=== PATIENT | male | born 1955 | race Caucasian/White ===

== ENCOUNTER → 2021-06-29 | Emergency (ER) | payer BC, OTHER ==
[~2021-06-29] VITALS: Ht 175.3 cm; Wt 79.5 kg
[~2021-06-29] MED LIST: AMIO200T62 PO; AMLO5TAB4 PO; APIX5TAB3 PO; ASPI-100 PO; ATEN50TA41 PO; LORazepam 2 mg/ml vial IV ONE; TADA5TAB2 PO; diltiazem 5mg/ml 5ml inj. IV ONE; normal saline 1000ml 1,000 ML IV ONE; propofol 10mg/ml 20ml vial IV ONE
[2021-06-29 11:01] LABS: BASOPHILS # (AUTO) 0.1 X10'3 (0-0.2); BASOPHILS % (AUTO) 0.7 % (0-1); EOSINOPHILS # (AUTO) 0.2 X10'3 (0-0.9); EOSINOPHILS % (AUTO) 2.1 % (0-6); HEMATOCRIT 49.2 % (42.0-52.0); HEMOGLOBIN 17.3 g/dl (14.0-17.9); LYMPHOCYTES # (AUTO) 2.5 X10'3 (1.1-4.8); LYMPHOCYTES % (AUTO) 32.3 % (21-51); MEAN CORPUSCULAR HEMOGLOBIN 30.6 PG (27.0-31.0); MEAN CORPUSCULAR HGB CONC 35.2 g/dL (33.0-36.5); MEAN CORPUSCULAR VOLUME 86.7 FL (78-98); MEAN PLATELET VOLUME 8.8 FL (7.4-10.4); MONOCYTES # (AUTO) 0.7 X10'3 (0-0.9); MONOCYTES % (AUTO) 9.2 % (2-12); NEUTROPHILS # (AUTO) 4.3 X10'3 (1.8-7.7); NEUTROPHILS % (AUTO) 55.7 % (42-75); PLATELET COUNT 250 X10'3 (140-440); RED BLOOD COUNT 5.67 X10'6 (4.70-6.10); RED CELL DISTRIBUTION WIDTH 14.2 % (11.5-14.5); WHITE BLOOD COUNT 7.7 X10'3 (4.5-11.0)
[2021-06-29 11:22] LABS: ALANINE AMINOTRANSFERASE 50 U/L (12-78); ALBUMIN 4.2 G/DL (3.4-5.0); ALKALINE PHOSPHATASE 49 IU/L (46-116); ANION GAP 10 (8-16); ASPARTATE AMINO TRANSFERASE 28 U/L (10-37); BILIRUBIN,TOTAL 0.5 MG/DL (0.1-1.0); BLOOD UREA NITROGEN 19 MG/DL (7-18); BUN/CREATININE RATIO 22.4 (5.4-32.0); CALCIUM 9.1 MG/DL (8.5-10.1); CHLORIDE 104 MMOL/L (99-107); CREATININE 0.85 MG/DL (0.60-1.10); GLUCOSE 122 MG/DL (70-104); POTASSIUM 4.3 MMOL/L (3.5-5.1); SODIUM 137 MMOL/L (135-145); TOTAL CARBON DIOXIDE 22.6 MMOL/L (24-32); TOTAL PROTEIN 8.3 G/DL (6.4-8.2); eGFR > 90 ML/MIN
[2021-06-29 11:34] LABS: MAGNESIUM 2.1 MG/DL (1.5-2.4)
[2021-06-29 13:56] VITALS: BP 118/78
== END | disposition home or self-care (01) ==
LOC: ER 10:13
DX: I48.91 Unspecified atrial fibrillation (principal)
CPT/HCPCS: 36415; 71045; 80053; 83735; 83880; 84484; 85025; 85610; 92960; 93005; 96361; 96374; 96375; 99285; J2060; J2704; J3490; J7030

== ENCOUNTER 2021-07-08 14:17 | Emergency (ER) | payer BC ==
[~2021-07-08] VITALS: Ht 175.3 cm; Wt 79.0 kg
[2021-07-08 15:21] LABS: BASOPHILS % (AUTO) 0.6 % (0-1); EOSINOPHILS # (AUTO) 0.2 X10'3 (0-0.9); EOSINOPHILS % (AUTO) 2.3 % (0-6); LYMPHOCYTES # (AUTO) 1.4 X10'3 (1.1-4.8); LYMPHOCYTES % (AUTO) 20.8 % (21-51); MEAN CORPUSCULAR HEMOGLOBIN 30.1 PG (27.0-31.0); MEAN CORPUSCULAR HGB CONC 34.1 g/dL (33.0-36.5); MEAN CORPUSCULAR VOLUME 88.2 FL (78-98); MEAN PLATELET VOLUME 8.9 FL (7.4-10.4); MONOCYTES # (AUTO) 0.5 X10'3 (0-0.9); MONOCYTES % (AUTO) 8.1 % (2-12); NEUTROPHILS # (AUTO) 4.4 X10'3 (1.8-7.7); NEUTROPHILS % (AUTO) 68.2 % (42-75); PLATELET COUNT 227 X10'3 (140-440); RED BLOOD COUNT 4.99 X10'6 (4.70-6.10); RED CELL DISTRIBUTION WIDTH 14.2 % (11.5-14.5); WHITE BLOOD COUNT 6.5 X10'3 (4.5-11.0)
[2021-07-08 15:48] LABS: APTT 27 SECONDS (22-32)
[2021-07-08 15:53] LABS: ALANINE AMINOTRANSFERASE 47 U/L (12-78); ALBUMIN 3.8 G/DL (3.4-5.0); ALBUMIN/GLOBULIN RATIO 1.2 (1.1-1.5); ALKALINE PHOSPHATASE 45 IU/L (46-116); ANION GAP 10 (8-16); ASPARTATE AMINO TRANSFERASE 27 U/L (10-37); BILIRUBIN,TOTAL 0.3 MG/DL (0.1-1.0); BLOOD UREA NITROGEN 18 MG/DL (7-18); BUN/CREATININE RATIO 20.9 (5.4-32.0); CALCIUM 8.9 MG/DL (8.5-10.1); CHLORIDE 105 MMOL/L (99-107); CREATININE 0.86 MG/DL (0.60-1.10); GLUCOSE 138 MG/DL (70-104); POTASSIUM 3.8 MMOL/L (3.5-5.1); SODIUM 140 MMOL/L (135-145); TOTAL CARBON DIOXIDE 25.2 MMOL/L (24-32); TOTAL PROTEIN 7.1 G/DL (6.4-8.2); eGFR 90 ML/MIN
[2021-07-08 17:26] VITALS: BP 141/67
== END 2021-07-08 17:28 | disposition home or self-care (01) ==
LOC: ER 14:18
DX: I10 Essential (primary) hypertension (principal); I48.0 Paroxysmal atrial fibrillation; R20.0 Anesthesia of skin; F41.9 Anxiety disorder, unspecified; R53.1 Weakness; I48.91 Unspecified atrial fibrillation
CPT/HCPCS: 36415; 70450; 71045; 80053; 85025; 85610; 85730; 93005; 99285

== ENCOUNTER 2021-07-12 05:07 | Inpatient (IN) | payer BC ==
[2021-07-12] VITALS (7 sets, daily range): BP systolic 101–141; BP diastolic 50–84
[~2021-07-12] VITALS: Ht 175.3 cm; Wt 81.2 kg
[2021-07-12] MEDS ORDERED: aspirin 81mg tab.chew PO ONE ×2 (05:15→05:35)
[2021-07-12] MEDS ORDERED: magnesium 2GM in 50ml NS 50 ML IV ONE (05:35)
[2021-07-12] MEDS ORDERED: enoxaparin 100mg/ml syringe SUBCUT ONE (05:35)
[2021-07-12] MEDS ORDERED: normal saline 1000ML IV soln IVB ONE (05:35)
[2021-07-12 05:49] LABS: BASOPHILS # (AUTO) 0.1 X10'3 (0-0.2); BASOPHILS % (AUTO) 0.8 % (0-1); EOSINOPHILS # (AUTO) 0.4 X10'3 (0-0.9); EOSINOPHILS % (AUTO) 3.3 % (0-6); HEMATOCRIT 50.5 % (42.0-52.0); HEMOGLOBIN 17.3 g/dl (14.0-17.9); LYMPHOCYTES # (AUTO) 3.6 X10'3 (1.1-4.8); LYMPHOCYTES % (AUTO) 32.6 % (21-51); MEAN CORPUSCULAR HEMOGLOBIN 30.3 PG (27.0-31.0); MEAN CORPUSCULAR HGB CONC 34.2 g/dL (33.0-36.5); MEAN CORPUSCULAR VOLUME 88.7 FL (78-98); MEAN PLATELET VOLUME 8.7 FL (7.4-10.4); MONOCYTES # (AUTO) 1.1 X10'3 (0-0.9); MONOCYTES % (AUTO) 10.3 % (2-12); NEUTROPHILS # (AUTO) 5.8 X10'3 (1.8-7.7); PLATELET COUNT 286 X10'3 (140-440); RED BLOOD COUNT 5.69 X10'6 (4.70-6.10); RED CELL DISTRIBUTION WIDTH 14.2 % (11.5-14.5); WHITE BLOOD COUNT 10.9 X10'3 (4.5-11.0)
[2021-07-12 06:01] LABS: ALANINE AMINOTRANSFERASE 51 U/L (12-78); ALBUMIN 4.4 G/DL (3.4-5.0); ALBUMIN/GLOBULIN RATIO 1.1 (1.1-1.5); ALKALINE PHOSPHATASE 60 IU/L (46-116); ANION GAP 12 (8-16); ASPARTATE AMINO TRANSFERASE 23 U/L (10-37); BILIRUBIN,TOTAL 0.2 MG/DL (0.1-1.0); BLOOD UREA NITROGEN 20 MG/DL (7-18); BUN/CREATININE RATIO 21.1 (5.4-32.0); CALCIUM 9.2 MG/DL (8.5-10.1); CHLORIDE 105 MMOL/L (99-107); CREATININE 0.95 MG/DL (0.60-1.10); GLUCOSE 131 MG/DL (70-104); POTASSIUM 4.1 MMOL/L (3.5-5.1); SODIUM 142 MMOL/L (135-145); TOTAL PROTEIN 8.4 G/DL (6.4-8.2); eGFR 80 ML/MIN
[2021-07-12 06:09] LABS: MAGNESIUM 1.9 MG/DL (1.5-2.4)
[2021-07-12] MEDS: diltiazem-NS 100mg/100ml 100 ML IV SCH (06:58)
[2021-07-12] MEDS ORDERED: magnesium hydroxide 30ml (MOM) UD suspension PO PRN (07:25)
[2021-07-12] MEDS ORDERED: ondansetron/PF 4mg/2ml inj IV PRN (07:25)
[2021-07-12] MEDS ORDERED: magnesium 4gm in 100ml NS 100 ML IV PRN (07:25)
[2021-07-12] MEDS ORDERED: potassium Cl 20 mEq SR tablet PO PRN ×2 (07:25)
[2021-07-12] MEDS ORDERED: acetaminophen 325mg tablet PO PRN (07:25)
[2021-07-12] MEDS ORDERED: magnesium 2GM in 50ml NS 50 ML IV PRN (07:25)
[2021-07-12] MEDS ORDERED: potassium CL 10mEq/100ml bag 100 ML IV PRN (07:25)
[2021-07-12] MEDS ORDERED: mag hydrox/Alum hydrox/simeth 30ml oral suspension PO PRN (07:25)
[2021-07-12] MEDS: K and/or MAG REPLACEMENT MC SCH ×2 (08:00→19:46)
[2021-07-12] MEDS ORDERED: iohexol 350MG/ML 100ml bottle IV ONE (08:06)
--- NOTE | 2021-07-12 08:17 | NUR ---
dr. valentin at bedside.
[2021-07-12] MEDS: docusate sod 100mg capsule PO SCH ×2 (10:04→19:47)
[2021-07-12] MEDS: normal saline 1000ml 1,000 ML IV SCH ×2 (10:08→17:25)
[2021-07-12 10:36] LABS: POTASSIUM 4.4 MMOL/L (3.5-5.1)
[2021-07-12 10:42] LABS: MAGNESIUM 9.3 MG/DL (1.5-2.4)
--- NOTE | 2021-07-12 10:49 | NUR ---
Dr. Donovan made aware via [employer] that patient has a mag-9.3 called in at 1040. New order received and noted to repeat magnesium level.
[2021-07-12 11:27] LABS: MAGNESIUM 2.3 MG/DL (1.5-2.4)
--- NOTE | 2021-07-12 12:02 | NUR ---
Page Sent promotional table spacer PAGER ID: [phone] MESSAGE: [id number] Stephon. Repeat Mag is 2.3. Kaya/Janie [id number]
[2021-07-12] MEDS ORDERED: AMLO5TAB4 PO (14:16)
[2021-07-12] MEDS ORDERED: TADA5TAB2 PO (14:16)
[2021-07-12] MEDS ORDERED: ATEN50TA41 PO (14:16)
[2021-07-12] MEDS ORDERED: ASPI-100 PO (14:16)
--- NOTE | 2021-07-12 18:52 | NUR ---
Problems reprioritized. Patient report given, questions answered & plan of care reviewed with Beth.
[2021-07-12] MEDS: apixaban 5mg tablet PO SCH (19:47)
[2021-07-12] MEDS ORDERED: Melatonin 3mg tablet PO PRN (21:45)
--- NOTE | 2021-07-13 00:36 | NUR ---
Cardizem stopped, patient HR in the 60's. Shortly after patient converted to sinus zaina. Will continue to monitor.
[2021-07-13 02:00] VITALS: BP 116/59
[2021-07-13] MEDS: diltiazem-NS 100mg/100ml 100 ML IV SCH (02:45)
[2021-07-13] MEDS: normal saline 1000ml 1,000 ML IV SCH (03:25)
[2021-07-13 06:00] VITALS: BP 101/55
[2021-07-13 06:03] LABS: BASOPHILS % (AUTO) 0.6 % (0-1); EOSINOPHILS # (AUTO) 0.2 X10'3 (0-0.9); EOSINOPHILS % (AUTO) 2.7 % (0-6); HEMATOCRIT 46.5 % (42.0-52.0); HEMOGLOBIN 15.7 g/dl (14.0-17.9); LYMPHOCYTES # (AUTO) 2.5 X10'3 (1.1-4.8); LYMPHOCYTES % (AUTO) 32.3 % (21-51); MEAN CORPUSCULAR HEMOGLOBIN 29.9 PG (27.0-31.0); MEAN CORPUSCULAR HGB CONC 33.8 g/dL (33.0-36.5); MEAN CORPUSCULAR VOLUME 88.5 FL (78-98); MEAN PLATELET VOLUME 8.8 FL (7.4-10.4); MONOCYTES # (AUTO) 0.7 X10'3 (0-0.9); MONOCYTES % (AUTO) 9.5 % (2-12); NEUTROPHILS # (AUTO) 4.2 X10'3 (1.8-7.7); NEUTROPHILS % (AUTO) 54.9 % (42-75); PLATELET COUNT 248 X10'3 (140-440); RED BLOOD COUNT 5.25 X10'6 (4.70-6.10); RED CELL DISTRIBUTION WIDTH 13.9 % (11.5-14.5); WHITE BLOOD COUNT 7.7 X10'3 (4.5-11.0)
[2021-07-13 06:33] LABS: ANION GAP 12 (8-16); BLOOD UREA NITROGEN 21 MG/DL (7-18); BUN/CREATININE RATIO 23.3 (5.4-32.0); CALCIUM 9.2 MG/DL (8.5-10.1); CHLORIDE 106 MMOL/L (99-107); GLUCOSE 109 MG/DL (70-104); POTASSIUM 4.7 MMOL/L (3.5-5.1); SODIUM 143 MMOL/L (135-145); eGFR 85 ML/MIN
[2021-07-13 06:34] LABS: ALANINE AMINOTRANSFERASE 48 U/L (12-78); ALBUMIN 3.6 G/DL (3.4-5.0); ALBUMIN/GLOBULIN RATIO 1.1 (1.1-1.5); ASPARTATE AMINO TRANSFERASE 28 U/L (10-37); BILIRUBIN,TOTAL 0.4 MG/DL (0.1-1.0); TOTAL PROTEIN 6.9 G/DL (6.4-8.2)
--- NOTE | 2021-07-13 07:15 | NUR ---
Patient in room PCU 3025. I have received report from Beth and had the opportunity to ask questions and assume patient care.
[2021-07-13] MEDS: K and/or MAG REPLACEMENT MC SCH (08:00)
[2021-07-13] MEDS ORDERED: diltiazem CD 120mg capsule (once-daily) PO SCH (08:35)
[2021-07-13] MEDS ORDERED: atenolol 50mg tablet PO SCH (08:43)
[2021-07-13] MEDS: apixaban 5mg tablet PO SCH (08:44)
[2021-07-13] MEDS: docusate sod 100mg capsule PO SCH (08:44)
[2021-07-13 08:50] VITALS: BP_SYST 124
[2021-07-13] MEDS ORDERED: APIX5TAB3 PO (10:07)
[2021-07-13] MEDS ORDERED: AMIO200T62 PO (10:07)
--- NOTE | 2021-07-13 12:38 | NUR ---
Patient d/c to go home with d/c instructions/directions printed and verbally given to patient. He verbalizes understanding and denied having any questions for marketing writer. IV line and campus monitor removed. 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 IV line and campus monitor removed. No distress at the time of d/c. Addendum: 07/13/21 at 1259 by Mayte Lopez RN Patient accompanied home by with all personal belongings at 1250 with no distress noted.
[2021-07-14] MEDS ORDERED: TADALAFIL 5MG PO SCH (08:00)
== END 2021-07-13 12:58 | disposition home or self-care (01) | DRG 310 ==
LOC: ER 05:08 → ED HOLD 07:31 → PCU 3S 08:30 → OBSVTOIN 14:00
PROVIDERS: ADMIT Family Medicine; ATTEND Family Medicine
DX: I48.91 Unspecified atrial fibrillation (principal); E78.5 Hyperlipidemia, unspecified; I10 Essential (primary) hypertension; Z79.01 Long term (current) use of anticoagulants; Z86.74 Personal history of sudden cardiac arrest; Z79.899 Other long term (current) drug therapy
CPT/HCPCS: 36415; 71045; 80053; 83735; 83880; 84132; 84484; 85025; 87081; 93005; 93306; 96361; 96365; 96366; 96368; 96372; 96375; 99291; G0378; J1650; J3475; J3490; J7030; Q9967